=== PATIENT | female | born 1945 | race Caucasian/White ===

== ENCOUNTER 2020-03-07 07:44 | Outpatient (CLI) | payer MEDICARE, SELFPAY ==
--- NOTE | ~2020-03-07 | MM_ITS ---
EXAMINATION: MM screening [facility] HISTORY: Screening mammogram, family history of breast cancer in her sister. TECHNIQUE: Craniocaudal and mediolateral oblique 3-D tomosynthesis images were obtained and synthetic 2-D images were generated. CAD analysis was submitted and interpreted. COMPARISON: 12/20/2018, 12/17/2017, 12/15/2016 BREAST PARENCHYMAL COMPOSITION: The breasts are almost entirely fatty. FINDINGS: There is no evidence of suspicious mass, calcification, or architectural distortion to sugg est malignancy in either breast. There has been no suspicious interval change. IMPRESSION: 1. No mammographic evidence of malignancy. 2. Recommend routine screening mammography in one year. BI-RADS Category 1: Negative Reviewed, dictated and finalized at location A.
== END 2020-03-07 07:45 | disposition home or self-care (01) ==
PROVIDERS: PCP Nurse Practitioner Adult Health; Visit Provider Nurse Practitioner Adult Health
DX: Z12.31 Encounter for screening mammogram for malignant neoplasm of breast (principal)
CPT/HCPCS: 77063; 77067

== ENCOUNTER 2021-03-10 09:03 | Outpatient (CLI) | payer MEDICARE, SELFPAY ==
--- NOTE | ~2021-03-10 | MM_ITS ---
EXAMINATION: MM screening [facility] HISTORY: Screening TECHNIQUE: Craniocaudal and mediolateral oblique 3-D tomosynthesis images were obtained and synthetic 2-D images were generated. CAD analysis was submitted and interpreted. COMPARISON: Comparison to multiple prior studies sequentially, with oldest reviewed study dated 11/15. BREAST PARENCHYMAL COMPOSITION: There are scattered areas of fibroglandular density. FINDINGS: There is no evidence of suspicious mass, calcification, or architectural distortion to sugg est malignancy in either breast. There has been no suspicious interval change. IMPRESSION: 1. No mammographic evidence of malignancy. 2. Recommend routine screening mammography in one year. BI-RADS Category 1: Negative Reviewed, dictated and finalized at location A.
== END 2021-03-10 09:04 | disposition home or self-care (01) ==
LOC: ANHIMG 09:05
PROVIDERS: PCP Nurse Practitioner Adult Health; Visit Provider Obstetrics & Gynecology
DX: Z12.31 Encounter for screening mammogram for malignant neoplasm of breast (principal)
CPT/HCPCS: 77063; 77067

== ENCOUNTER → 2021-05-14 15:13 | Outpatient (CLI) | payer MEDICARE, SELFPAY ==
--- NOTE | ~2021-05-14 | MR_ITS ---
EXAMINATION: MR thoracic spine wo con EXAM DATE: 05/14/2021 17:19 INDICATION: Thoracic pain, back spasms. Polio. TECHNIQUE: Multi-sequential, multiplanar MR images of the thoracic spine were obtained without contra st. Sagittal T1, T2, T2 fat saturation, axial T2 weighted images reviewed. Correlation is made to T horacic x-ray 12/23/2016 FINDINGS: The vertebral bodies are aligned in the AP dimension. There is minimal thoracic disc diseas e. No central canal or neural foraminal stenosis. There are no suspicious marrow signal abnormalities . The spinal cord signal intensity and intrinsic morphology is normal. There is mild thoracic facet a rthropathy. Paraspinal soft tissue is unremarkable. IMPRESSION: Mild thoracic facet arthropathy, minimal disc disease. Reviewed, dictated and finalized at location B.
== END ==
PROVIDERS: PCP Nurse Practitioner Adult Health; Visit Provider Nurse Practitioner Family
DX: M54.6 Pain in thoracic spine (principal)
CPT/HCPCS: 72146

== ENCOUNTER 2021-09-22 11:34 | Emergency (ER) | payer MEDICARE, SELFPAY ==
[2021-09-22 11:47] VITALS: BP 110/86; PULSE 77; RESP 16; TEMP 36.4; O2SAT 97
--- NOTE | 2021-09-22 12:14 | ED.EXTPRO ---
HPI - Extremity Problem General Chief complaint: Extremity Problem,Nontraumatic Stated complaint: Pain in Left foot Time Seen by Provider: 09/22/21 12:14 Mode of arrival: ambulatory Limitations: no limitations History of Present Illness HPI Narrative: 76-year-old female presents concern for left lower foot pain. She reports that she woke up in the middle of the night with severe pain in the left foot. She reports redness, swelling, warmth. She reports the pain is in all 5 joints of the digits of the foot. She reports she used elevation, soaking the foot which temporarily decreased the swelling. Reports she has been taking her previously prescribed pain medicine for pain which eases the pain. She reports a history of right ankle swelling when she had a blood clot in the past. She denies any injury or trauma. Denies open skin or rash. MD Complaint: extremity pain Related Data Allergies Allergy/AdvReac Type Severity Reaction Status Date / Time No Known Allergies Allergy Verified 09/22/21 11:55 Review of Systems Review of Systems: CONSTITUTIONAL: Denies malaise, chills, sweats, or fever. CARDIOVASCULAR: Denies chest pain, palpitations, or edema. RESPIRATORY: Denies cough or dyspnea. SKIN: Reports left foot redness, warmth, swelling MUSCULOSKELETAL: Reports left foot pain NEUROLOGIC: Denies numbness, weakness All systems reviewed & are unremarkable except as noted in HPI and below PMFSH Comments At time of signature, agree with nursing past medical, surgical, social and family history. There is no relevant family history pertinent to the presenting complaint Exam Narrative: GENERAL: Well-appearing, well-nourished, and in no acute distress. HEAD: Normocephalic, atraumatic. EYES: PERRLA, conjunctivae clear NECK: Supple. CHEST: Speaks in full sentences. No respiratory distress. HEART: Regular rate and rhythm. Normal and equal peripheral pulses. EXTREMITIES: Left foot has normal strength and sensation, normal range of motion. Mild 1+ pitting edema with erythema and mild warmth. No ecchymosis. 5/5 strength with ankle and digit flexion and extension. Normal sensation with sensitivity to light touch and pain. No point tenderness. No open wounds, no skin tenting, no devitalized tissue or atrophy, no trophic changes, no obvious deformity, alignment normal, nearby joints and structures intact. Distal pulses palpable and equal bilaterally, skin warm, dry, pink. Capillary refill less than 3 seconds. SKIN: Warm, dry, no rash. NEURO: Alert and oriented x3. PSYCH: Normal mood and affect Course Course Emergency Course: Discussed with patient need for further evaluation of symptoms to rule out blood clot. Facilitated appointment with patient's primary care doctor tomorrow morning, patient is instructed to go to the emergency room if symptoms change or worsen. In the meantime will treat for potential gout. Patient is aware of, understands and agrees to treatment plan. Anticipatory guidance given. Patient agrees to follow-up as directed and is aware of reasons to seek care at the emergency department. Portions of this record may have been created with voice recognition software Level of Care: Express Care Visit Vital Signs Vital signs: Vital Signs Temperature 97.5 F L 09/22/21 11:47 Pulse Rate 77 09/22/21 11:47 Respiratory Rate 16 09/22/21 11:47 Blood Pressure 110/86 09/22/21 11:47 Pulse Oximetry 97 09/22/21 11:47 Temperature 97.5 F L 09/22/21 11:47 Pulse Rate 77 09/22/21 11:47 Respiratory Rate 16 09/22/21 11:47 Blood Pressure 110/86 09/22/21 11:47 Pulse Oximetry 97 09/22/21 11:47 Reviewed. MDM - Extremity (Nontraumatic) MDM Narrative Medical decision making narrative: Exam findings show no acute concerns but warrant further evaluation; patient is non-toxic appearing and is in no distress. Patient is appropriate for outpatient treatment and follow-up. Differential Diagnosis Differential diagnos
== END 2021-09-22 12:36 | disposition home or self-care (01) ==
PROVIDERS: Emergency Provider Nurse Practitioner; PCP Nurse Practitioner Adult Health
DX: M79.89 Other specified soft tissue disorders (principal); E78.00 Pure hypercholesterolemia, unspecified; E11.9 Type 2 diabetes mellitus without complications
CPT/HCPCS: 99213; G0463

== ENCOUNTER 2022-04-24 07:55 | Outpatient (CLI) | payer MEDICARE, SELFPAY ==
--- NOTE | ~2022-04-24 | MM_ITS ---
EXAMINATION: MM screening [facility] HISTORY: Screening mammogram, family history of breast cancer in her sister. TECHNIQUE: Craniocaudal and mediolateral oblique 3-D tomosynthesis images were obtained and synthetic 2-D images were generated. CAD analysis was submitted and interpreted. COMPARISON: 03/10/2021, 03/07/2020, 12/20/2018 BREAST PARENCHYMAL COMPOSITION: There are scattered areas of fibroglandular density. FINDINGS: Scattered benign-appearing calcifications are present. There is no suspicious mass, calcifi cation, or architectural distortion to suggest malignancy in either breast. There has been no suspici ous interval change. IMPRESSION: 1. No mammographic evidence of malignancy. 2. Recommend routine screening mammography in one year. BI-RADS Category 2: Benign finding(s). Reviewed, dictated and finalized at location A.
== END 2022-04-24 07:56 | disposition home or self-care (01) ==
LOC: ANHIMG 08:00
PROVIDERS: PCP Nurse Practitioner Adult Health; Visit Provider Obstetrics & Gynecology
DX: Z12.31 Encounter for screening mammogram for malignant neoplasm of breast (principal)
CPT/HCPCS: 77063; 77067

== ENCOUNTER 2023-05-21 08:22 | Outpatient (CLI) | payer MEDICARE, SELFPAY ==
--- NOTE | ~2023-05-21 | MM_ITS ---
EXAMINATION: MM screening [facility] HISTORY: Screening mammogram TECHNIQUE: Craniocaudal and mediolateral oblique 3-D tomosynthesis images were obtained and synthetic 2-D images were generated. CAD analysis was submitted and interpreted. COMPARISON: 04/24/2022, 03/10/2021, 03/07/2020 bilateral screening mammogram examinations BREAST PARENCHYMAL COMPOSITION: There are scattered areas of fibroglandular density. FINDINGS: There is no evidence of suspicious mass, calcification, or architectural distortion to sugg est malignancy in either breast. There has been no suspicious interval change. IMPRESSION: 1. No mammographic evidence of malignancy. 2. Recommend routine screening mammography in one year. BI-RADS Category 1: Negative Reviewed, dictated and finalized at location A.
== END 2023-05-21 08:23 | disposition home or self-care (01) ==
LOC: ANHIMG 08:26
PROVIDERS: PCP Family Medicine; Visit Provider Obstetrics & Gynecology
DX: Z12.31 Encounter for screening mammogram for malignant neoplasm of breast (principal)
CPT/HCPCS: 77063; 77067

== ENCOUNTER 2024-05-24 09:26 | Outpatient (CLI) | payer MEDICARE, SELFPAY ==
--- NOTE | ~2024-05-24 | MM_ITS ---
EXAMINATION: MM screening [facility] HISTORY: Screening TECHNIQUE: Craniocaudal and mediolateral oblique 3-D tomosynthesis images were obtained and synthetic 2-D images were generated. CAD analysis was submitted and interpreted. COMPARISON: Comparison to multiple prior studies sequentially, with oldest reviewed study dated 12/17. BREAST PARENCHYMAL COMPOSITION: Not dense: There are scattered areas of fibroglandular density. FINDINGS: There is no evidence of suspicious mass, calcification, or architectural distortion to sugg est malignancy in either breast. There has been no suspicious interval change. IMPRESSION: 1. No mammographic evidence of malignancy. 2. Recommend routine screening mammography in one year. BI-RADS Category 1: Negative Reviewed, dictated and finalized at location B.
== END 2024-05-24 09:27 | disposition home or self-care (01) ==
LOC: ANHIMG 09:30
PROVIDERS: PCP Physician Assistant; Visit Provider Obstetrics & Gynecology
DX: Z12.31 Encounter for screening mammogram for malignant neoplasm of breast (principal)
CPT/HCPCS: 77063; 77067

== ENCOUNTER 2025-05-28 10:08 | Outpatient (CLI) | payer MEDICARE, SELFPAY ==
--- OUTSIDE RECORDS SUMMARY | 2009-11-14 04:30 | XMS_ITS | Continuity of Care Document ---
Author Organization [facility] Address [address] [place] [address] [place] [address] Phone Care Team Providers Care Fur Plucker Name Role Phone Miroslava Weems Unavailable Unavailable Procedures Procedure Date Eye Exam & Treatment Eye Exam & Treatment Advance Directives Directive Yes / No Effective Date File Name No Information Encounters Encounter Description Practice Location Reason(s) For Visit Diagnoses Date Provider Providers Copied on Encounter [facility], [address] [place] [address] [address], [place], [place], [id number], tel:[phone] [facility] [place]note 2[place] No Information 0 Faustina Colorado. [address] [facility] , [address], [place], [address], [place]. tel:[phone] [facility], [address] [place] [address] [address], [place], [place], [id number], tel:[phone] [facility] No Information 8 Faustina Colorado. [address] [facility] , [address], [place], [address], [place]. tel:[phone] Family History Family Member Type Diagnosis Age At Onset No Information Payers Payer name Insurance type Covered republican ID Authoriza tion(s) No Information Social History Type Description Quantity Date Captured Comments Sex Female Smoking Status No Information Chief Complaint And Reason For Visit No Information Reason For Referral Reason For Referral No Information History Of Present Illness Encounter Date Complaint History Of Prese nt Illness No Information Functional Status Date Functional Assessmen t No Information Instructions Date Instruction Additional Infor mation No Information Assessments Type Assessment Date No Information Patient Care Teams Name Effective Dates (start - stop) Status Members No Information
--- NOTE | ~2025-05-28 | MM_ITS ---
EXAMINATION: MM screening [facility] w [facility]ins HISTORY: Screening TECHNIQUE: Craniocaudal and mediolateral oblique 3-D tomosynthesis images were obtained and synthetic 2-D images were generated. CAD analysis was submitted and interpreted. COMPARISON: Comparison to multiple prior studies sequentially, with oldest reviewed study dated 03/07/2020. BREAST PARENCHYMAL COMPOSITION: There are scattered areas of fibroglandular density. FINDINGS: There is no evidence of suspicious mass, calcification, or architectural distortion to suggest malignancy in either breast. Scattered benign-appearing calcifications are present. IMPRESSION: 1. No mammographic evidence of malignancy. 2. Recommend routine screening mammography in one year. BI-RADS Category 2: Benign finding(s). Reviewed, dictated and finalized at location B.
--- OUTSIDE RECORDS SUMMARY | 2025-05-28 11:16 | XMS_ITS | Clinical Summary ---
Author Organization [facility] Address [address] [place] [phone] Phone Care Team Providers Care Production Support Developer Name Role Phone Adri Bentley NP Primary Care Provider [phone] Allergies Active Allergy Reactions Criticality Noted Date Comments Lisinopril Dizziness 09/20/2019 Propranolol 09/20/2019 Medications NIFEdipine CC (ADALAT CC) 90 MG 24 hr tablet 1 tab/cap qday 08/01/20 14 Active losartan (COZAAR) 100 MG tablet 1 tab/cap qday 0 08/30/19 14 Active Magnesium 250 MG tablet 1 tab/cap qday 08/19/20 12 Active fenofibrate (TRICOR) 145 MG tablet 1 tab/cap qday 08/19/20 12 Active atenolol (TENORMIN) 50 MG tablet 3 tabs/caps qday 0 08/19/20 12 Active aspirin (NIC ASPIRIN) 325 MG tablet 1 tab/cap qday 08/19/20 12 Active sitagliptin-me tformin (JANUMET) 50-500 MG per tablet 2 tabs/caps qday 0 01/19/20 13 Active glimepiride (AMARYL) 2 MG tablet 1 tab/cap qday 0 11/22/19 15 Active alclomethasone (ACLOVATE) 0.05 % cream alclometasone 0.05 % topical cream Active amLODIPine (NORVASC) 5 MG tablet every 12 hours Activ e atorvastatin (LIPITOR) 10 MG tablet Take 10 mg by mouth 1 (one) time each day 08/25/19 20 Active baclofen (LIORESAL) 10 MG tablet Take 10 mg by mouth 3 (three) times a day 08/30/19 20 Active cyclobenzaprin e (FLEXERIL) 10 MG tablet cyclobenzaprine 10 mg tablet TAKE 1 TABLET BY MOUTH THREE TIMES A DAY NEEDED Active PREVIDENT 5000 DRY MOUTH 1.1 % gel USE DIRECTED BY DENTIST 09/09/19 20 Active traMADol (ULTRAM) 50 MG tablet Take 50 mg by mouth 2 (two) times a day if needed for pain 07/27/20 Active warfarin (COUMADIN) 2 MG tablet warfarin 2 mg tablet Active levothyroxine (SYNTHROID, LEVOTHROID) 75 MCG tablet Take 75 mcg by mouth 1 (one) time each day 08/13/20 Active Active Problems Problem Noted Date Diagnosed Date Hypomagnesemia 09/24/2019 Implantation of joint prosthesis 09/24/2019 Osteoarthritis 09/24/2019 Type 2 diabetes mellitus without complication Vitamin D deficiency 09/24/2019 Chronic kidney disease, stage 2 (mild) 9 Other hyperlipidemia 09/10/2015 Overview (11/05/2018): Converted unresolved ICD9, potential mismatch. Hypertensive chronic kidney disease with stage 1 through stage 4 chronic kidney disease, or unspecified chronic kidney disease 09/10/2015 Type 2 diabetes mellitus wit h other diabetic kidney complication 04/09/2014 Chronic kidney disease, stage 3 (moderate) 08/18 Hypothyroidism 08/18/2012 Essential (primary) hypertension 08/18/2012 Immunizations Immunization Administration Dates Next Due Influenza (IM) Preservative Free 06/21/2015 Influenza Split High Dose Preservative Free IM 06/09/2018,05/25/2017,06/11/2016,2013 Influenza TIV (IM) 09/11/2015,05/02/2013 Influenza, Injectable, Quadrivalent 05/30/2019,1 Pneumococcal Conjugate 13-Valent 06/10/2016,08/24,05/28/2010 Tdap 08/23/2009 Tetanus 01/05/2013 Zoster 03/11/2009 Family History Medical History Relation Comments Kidney disease Neg Hx Kidney stone Neg Hx Social History Tobacco Use Types Packs/Day Years Used Date Smoking Tobacco: Never Smokeless Tobacco: Never Alcohol Use Standard Drinks/Week Comments No 0 (1 standard drink = 0.6 oz pur e alcohol) Comments Unknown Sex and Gender Information Value Date Recorded Sex Assigned at Not on file Legal Sex Female 8:10 AM [facility] Gender Identity Not on file Sexual Orientation Not on file Last Filed Vital Signs Vital Sign Reading Time Taken Comments Blood Pressure 132/70 09/20/2019 11:43 AM [employer] Pulse - - Temperature 36.1 C (97 F) 09/20/2019 11:43 AM [employer]ATE RE[employer] Respiratory Rate 18 09/20/2019 11:43 AM [employer]PORATE RE[employer]UITER Oxygen Saturation - - Inhaled Oxygen Concentration - - Weight 86.2 kg (190 lb) 09/20/2019 11:43 AM [employer]PORATE RE[employer] Height 167.6 cm (5' 6) 09/20/2019 11:43 AM [employer]PORATE RECRUITER Body Mass Index 30.67 09/20/2019 11:43 AM [employer]PORATE RECRUITER Plan of Treatment Health Maintenance Due Date Last Done Comments Pneumococcal PPSV23/PCV13 65 + Years / Low and Medium Risk (2 of 3 - PCV20 or PCV21) 06/10/2017 06/10/2016, 09/11/2015, 05/28/2010 Influenza Vaccine (#1) 2025 6, 06/21/2015, 05/02/2013 Insurance MEDICARE [facility] Care Teams Production Support Developer Relationship Specialty Start Date End Date Adri Bentley NP [facility] [place] [address] PCP - General Internal Medicine 09/20/19
--- OUTSIDE RECORDS SUMMARY | 2025-05-28 11:16 | XMS_ITS | Clinical Summary ---
Author Organization [facility] Address [address] [place] [address] Care Team Providers Care Financial Management Consultant Name Role Phone Laura [place] MD Primary Care Provider [phone] Source Comments [facility] Affiliates and Associated Physician Practices is amultiple site organization consisting of ambulatory clinics and hospital sitesin [place], [place], [place] and [place]. This disclosure is being madepursuant to the Care Everywhere program and may not contain all information available regarding this patient. Last updated 18.[facility] Allergies No known active allergies Immunizations Immunization Administration Dates Next Due INFLUENZA VACCINE, HIGH-DOSE , QUADR. (FLUZONE HIGH-DOSE QUADRIVALENT; 65Y+), 0.7 ML (HD-IIV4) 05/25/2017 Social History Tobacco Use Types Packs/Day Years Used Date Smoking Tobacco: Never Assessed Comments Unknown Sex and Gender Information Value Date Recorded Sex Assigned at Not on file Legal Sex Female 10:56 AM CDT Gender Identity Not on file Sexual Orientation Not on file Plan of Treatment Health Maintenance Due Date Last Done Comments BONE DENSITY TESTING 1944 DTAP/TDAP/TD VACCINES (1 - Tdap) 02/20/1963 PNEUMOCOCCAL VACCINE 50+ (1 of 1 - PCV) 02/20/1994 ZOSTER VACCINE (1 of 2) 02/20/1994 Respiratory Syncytial Virus (RSV) Vaccine Pt: or over 60 yrs (1 - 1-dose 75+ series) 02/20/2019 DEPRESSION SCREENING 08/23/2024 COVID-19 VACCINE ( - 2023-2 5 season) 2025 INFLUENZA VACCINE (#1) 2025 05/25/2017 HEPATITIS B VACCINE Aged Out No longe r eligible based on patient's age to complete this topic HIB VACCINE Aged Out No longer eligi ble based on patient's age to complete this topic HPV VACCINE Aged Out No longer eligi ble based on patient's age to complete this topic MENINGOCOCCAL (Group B) VACC INE SHARED DECISION-MAKING Aged Out No longer eligibl e based on patient's age to complete this topic MENINGOCOCCAL GROUPS A/C/Y/W VACCINE Aged Out No longer eligible b ased on patient's age to complete this topic Insurance MEDICARE Care Teams Financial Management Consultant Relationship Specialty Start Date End Date Laura [place] MD [address] [place] [phone] PCP - General Family Medicine 12/25/14
== END 2025-05-28 10:09 | disposition home or self-care (01) ==
PROVIDERS: PCP Nurse Practitioner Family; Visit Provider Obstetrics & Gynecology
DX: Z12.31 Encounter for screening mammogram for malignant neoplasm of breast (principal)
CPT/HCPCS: 77063; 77067